=== PATIENT | male | born 1995 ===

== ENCOUNTER 2016-12-08 20:30 | Emergency (ER) | payer SELFPAY ==
[2016-12-08 20:30] VITALS: BMI 25.0
[2016-12-08] MEDS ORDERED: Lidocaine 2% Inj (20ml) INFIL ONE (20:51)
[2016-12-08] MEDS ORDERED: Lidocaine 2% Inj (20ml) ONE (20:54)
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
[2016-12-09 05:49] VITALS: BP 121/84; PULSE 78; RESP 16; TEMP 97.7
--- NOTE | 2016-12-09 08:34 | RAD ---
PROCEDURE: Bilateral hand radiographs. HISTORY: injury COMPARISON: None. FINDINGS: BONES: Right Hand: No complete fracture noted. There is soft tissue swelling over the 5th right no phalangeal joint. No dislocation here seen. On the radial aspect of the proximal phalanx thread-like lucency representing nutrient vessel similar finding on the 4th proximal phalanx the same location is noted this is favored over a incomplete partial fracture here Left Hand: A comminuted nondisplaced distal 2nd metacarpal fracture with extension into the metacarpal phalangeal joint is noted JOINTS: Right Hand: As above Left Hand: As above SOFT TISSUES: Right Hand: Soft tissue swelling about the comminuted left 2nd metacarpal fracture Left Hand: There is soft tissue swelling about the 5th proximal interphalangeal joint OTHER FINDINGS: None. IMPRESSION: Comminuted nondisplaced left 2nd metacarpal with metacarpal phalangeal joint extension. No angulation deformity Fifth proximal phalangeal soft tissue swelling without definitive fracture
--- NOTE | 2016-12-09 09:49 | CT ---
CT maxillofacial History: Injury. Comparison: None available. Technique: Multiple contiguous axial images were performed through the face without the use of intravenous contrast. Subsequently, sagittal and coronal reformatted images were obtained. This CT exam was performed using one or more of the following dose reduction techniques: Automated exposure control, adjustment of the mA and/or kV according to patient size, and/or use of iterative reconstruction technique. Findings: No evidence of acute displaced fracture. Visualized soft tissues appear preserved. Visualized orbits appear preserved. Mild scattered mucosal thickening noted within the paranasal sinuses. Rightward nasal septal deviation. Impression: Negative acute. These findings were preliminarily reported at 12:07 a.m. on 12/09/[address] Kristy Cruz from [facility].
--- NOTE | 2016-12-09 09:55 | CT ---
PROCEDURE: CT HEAD WITHOUT CONTRAST. HISTORY: injury COMPARISON: None available. TECHNIQUE: Axial computed tomography images were obtained through the head/brain without intravenous contrast. Radiation dose: Total exam DLP = 867 mGy-cm. This CT exam was performed using one or more of the following dose reduction techniques: Automated exposure control, adjustment of the mA and/or kV according to patient size, and/or use of iterative reconstruction technique. FINDINGS: HEMORRHAGE: No intracranial hemorrhage. BRAIN: No mass effect or edema. No atrophy or chronic microvascular ischemic changes. VENTRICLES: Unremarkable. No hydrocephalus. CALVARIUM: Unremarkable. PARANASAL SINUSES: Mild scattered mucosal thickening noted within the visualized paranasal sinuses. MASTOID AIR CELLS: Unremarkable as visualized. No inflammatory changes. OTHER FINDINGS: None. IMPRESSION: No acute intracranial abnormality. If focal neurologic deficit persists, consider MRI. These findings were preliminarily reported at 12:10 a.m. on 12/09/[address] Kristy Cruz from [facility].
[2016-12-19 17:25] VITALS: O2SAT 98
== END 2016-12-09 05:49 | disposition home or self-care (01) ==
LOC: C.ER 20:30
DX: S62.391A Other fracture of second metacarpal bone, left hand, initial encounter for closed fracture (principal); S00.81XA Abrasion of other part of head, initial encounter; Y00.XXXA Assault by blunt object, initial encounter; Y92.9 Unspecified place or not applicable

== ENCOUNTER 2017-07-30 16:14 | Inpatient (IN) | payer SELFPAY ==
[2017-07-30 16:14] VITALS: BMI 25.0
--- NOTE | 2017-07-30 16:19 | C.PDOC ---
History Of Present Illness 21M c/o right ankle pain and swelling. he says he was drinking etoh last night. he woke up this am with red, painful, swollen right lower leg. he does not recall any fall or trauma. he says he actually noted the redness last night but woke up today with worsening symptoms. denies any other pmh other than depression. he admits to drinking etoh "once per month." Time Seen by Provider: 07/30/17 16:15 Chief Complaint (Nursing): Lower Extremity Problem/Injury Past Medical History Vital Signs: Last Vital Signs Temp 98.3 F 07/31/17 07:46 Pulse 90 07/31/17 07:46 Resp 20 07/31/17 07:46 BP 125/68 07/31/17 07:46 Pulse Ox 97 07/31/17 07:46 - Medical History PMH: Depression Denies: HIV, HTN, Seizures, Sexually Transmitted Disease - [facility] Procedures OTHER GROUP THERAPY (11/14/13) PSYCHIAT DRUG THERAP NEC (11/14/13) Family History: States: Other Other Family History: nc - Social History Hx Tobacco Use: Yes Hx Alcohol Use: No Hx Substance Use: No (refuses to answer) - Immunization History Hx Tetanus Toxoid Vaccination: Yes (few mos. ago) Hx Influenza Vaccination: No Hx Pneumococcal Vaccination: No Review Of Systems Except As Marked, All Systems Reviewed And Found Negative. Constitutional: Negative for: Fever Cardiovascular: Negative for: Chest Pain Respiratory: Negative for: Shortness of Breath Gastrointestinal: Negative for: Vomiting, Abdominal Pain Musculoskeletal: Negative for: Neck Pain, Back Pain Neurological: Negative for: Weakness, Numbness, Headache Physical Exam - Physical Exam Appears: Well, Non-toxic Skin: Warm, Dry Head: Atraumatic, No Swelling, No Abrasion, No Laceration Eye(s): bilateral: PERRL Nose: No Epistaxis Neck: Normal ROM, No Midline Cervical Tenderness Cardiovascular: Rhythm Regular Respiratory: No Decreased Breath Sounds, No Accessory Muscle Use Gastrointestinal/Abdominal: Soft, No Tenderness Extremity: Swelling (right ankle with mild erythema and warmth. rom somewhat dim due to pain. ) Pulses: Left Dorsalis Pedis: Normal, Right Dorsalis Pedis: Normal Neurological/Psych: Oriented x3, Normal Motor, Normal Sensation, Other (no focal deficits) ED Course And Treatment - Laboratory Results Result Diagrams: 07/31/17 07:45 07/31/17 07:45 Medical Decision Making Medical Decision Makin pt reports sob and appears flushed after toradol injection. lungs clear, throat appears normal. will rx for allergic rxn. 1823 pt resting comfortably, reports improvement in sx however still tachycardic and wbc. disc w Dr Mora will admit. ecg- sinus tach 109, nl axis, no acute ischemia PROCEDURE: Right Ankle Radiographs. HISTORY: fall pain COMPARISON: None FINDINGS: BONES: No definitive evidence of acute displaced fracture nor dislocation. The osseous structures appear intact. Talar dome intact of. JOINTS: Ankle mortise maintained. Tiny posterior and anterior tibial osteophyte formation seen. There is a tiny bony density adjacent to to the anterior superior margin of the talus that may represent some old posttraumatic mineralization. SOFT TISSUES: Mild diffuse soft tissue swelling lateral greater than medial. There is mild infiltration changes seen within the proximal subcutaneous tissues of the calf medial greater than lateral OTHER FINDINGS: None. IMPRESSION: No definitive radiographic evidence of acute displaced fracture nor dislocation. Mild soft tissue swelling over lateral greater than medial. If symptoms persist or occult fracture suspected clinically repeat radiographs 5- 10 days as most fractures should become radiographically evident in this timeframe. Minor DJD as detailed above. Disposition - Disposition Disposition: HOSPITALIZED Disposition Time: 18:33 Condition: STABLE - Clinical Impression Clinical Impression: Cellulitis
--- NOTE | 2017-07-30 16:49 | RAD ---
PROCEDURE: Right Ankle Radiographs. HISTORY: fall pain COMPARISON: None FINDINGS: BONES: No definitive evidence of acute displaced fracture nor dislocation. The osseous structures appear intact. Talar dome intact of. JOINTS: Ankle mortise maintained. Tiny posterior and anterior tibial osteophyte formation seen. There is a tiny bony density adjacent to to the anterior superior margin of the talus that may represent some old posttraumatic mineralization. SOFT TISSUES: Mild diffuse soft tissue swelling lateral greater than medial. There is mild infiltration changes seen within the proximal subcutaneous tissues of the calf medial greater than lateral OTHER FINDINGS: None. IMPRESSION: No definitive radiographic evidence of acute displaced fracture nor dislocation. Mild soft tissue swelling over lateral greater than medial. If symptoms persist or occult fracture suspected clinically repeat radiographs 5-10 days as most fractures should become radiographically evident in this timeframe. Minor DJD as detailed above.
[2017-07-30] MEDS ORDERED: DiphenhydrAMINE 50 mg/ml Inj IVP STA (17:15)
[2017-07-30] MEDS ORDERED: Albuterol 0.083% Inhal Sol (2.5 mg/3 mL) UD INH STA (17:16)
[2017-07-30] MEDS ORDERED: Sodium Chloride 0.9% 1,000 ML IV ONE (17:24)
[2017-07-30] MEDS ORDERED: DiphenhydrAMINE 50 mg/ml Inj ONE (17:27)
[2017-07-30] MEDS ORDERED: Albuterol-Ipratrop 3 mg / 0.5 (3 ml) UD ONE (17:27)
[2017-07-30 17:28] LABS: BASO # 0.1 K/uL (0.0-0.2); BASO % 0.4 % (0.0-2.0); HEMATOCRIT 43.9 % (35.0-51.0); LYMPH # 1.6 K/uL (1.0-4.3); LYMPH % 7.8 % (20.0-40.0); MEAN CORPUSCULAR HEMOGLOBIN 30.1 pg (27.0-31.0); MEAN CORPUSCULAR HGB CONC 33.9 g/dL (33.0-37.0); MONO # 2.7 K/uL (0.0-0.8); PLATELET COUNT 302 K/uL (130-400); WHITE BLOOD COUNT 20.9 K/uL (4.8-10.8)
[2017-07-30 17:33] LABS: MEAN CELL VOLUME 88.8 fL (80.0-94.0)
--- NOTE | 2017-07-30 17:39 | RAD ---
HISTORY: sob COMPARISON: Comparison chest 10/12/2016 FINDINGS: LUNGS: No active pulmonary disease. PLEURA: No significant pleural effusion identified, no pneumothorax apparent. CARDIOVASCULAR: Normal. OSSEOUS STRUCTURES: No significant abnormalities. VISUALIZED UPPER ABDOMEN: Normal. OTHER FINDINGS: None. IMPRESSION: No active disease.
[2017-07-30 17:40] LABS: ALB/GLOB RATIO 1.7 (1.0-2.1); ALKALINE PHOSPHATASE 70 U/L (38-126); ALT/SGPT 73 U/L (21-72); AST/SGOT 32 U/L (17-59); BILIRUBIN,TOTAL 1.5 mg/dL (0.2-1.3); BLOOD UREA NITROGEN 17 mg/dL (9-20); CALCIUM 8.9 mg/dl (8.6-10.4); CARBON DIOXIDE 24 mmol/L (22-30); CHLORIDE 95 mmol/L (98-107); GFR AFRICAN-AMERICAN > 60; GLUCOSE,RANDOM 94 mg/dL (75-110); POTASSIUM 3.8 mmol/L (3.6-5.2); SODIUM 131 mmol/L (132-148); TOTAL PROTEIN 7.7 g/dL (6.3-8.3)
[2017-07-30 17:53] VITALS: RESP 20
[2017-07-30 18:10] LABS: NEUTROPHIL 82 % (50-75); TOTAL CELLS COUNTED 100
[2017-07-30 18:11] LABS: LARGE PLATELETS PRESENT
[2017-07-30] MEDS ORDERED: ceFAZolin 1 gm FROZEN Premix 1 GM/50 ML ML IVPB ONE (18:45)
[2017-07-30] MEDS: Lactated Ringer's 1,000 ML IV SCH (19:53)
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
[2017-07-31] MEDS: Lactated Ringer's 1,000 ML IV SCH ×2 (05:38→16:07)
[2017-07-31 08:19] LABS: BASO % 0.1 % (0.0-2.0); LYMPH # 0.7 K/uL (1.0-4.3); LYMPH % 4.9 % (20.0-40.0); MEAN CELL VOLUME 89.1 fL (80.0-94.0); MEAN CORPUSCULAR HEMOGLOBIN 30.3 pg (27.0-31.0); MEAN CORPUSCULAR HGB CONC 34.1 g/dL (33.0-37.0); MEAN PLATELET VOLUME 7.6 fL (7.2-11.7); MONO % 6.8 % (0.0-10.0); NRBC % 0.2 % (0.0-2.0); PLATELET COUNT 277 K/uL (130-400); RED CELL DISTRIBUTION WIDTH 13.9 % (11.5-14.5); WHITE BLOOD COUNT 14.4 K/uL (4.8-10.8)
[2017-07-31 08:29] LABS: ALB/GLOB RATIO 1.4 (1.0-2.1); ALKALINE PHOSPHATASE 62 U/L (38-126); ALT/SGPT 55 U/L (21-72); AST/SGOT 23 U/L (17-59); BILIRUBIN,TOTAL 0.9 mg/dL (0.2-1.3); BLOOD UREA NITROGEN 15 mg/dL (9-20); CALCIUM 8.6 mg/dl (8.6-10.4); CARBON DIOXIDE 24 mmol/L (22-30); CHLORIDE 100 mmol/L (98-107); GFR AFRICAN-AMERICAN > 60; GLUCOSE,RANDOM 115 mg/dL (75-110); MAGNESIUM 2.1 mg/dL (1.6-2.3); PHOSPHOROUS 3.2 mg/dL (2.5-4.5); POTASSIUM 3.9 mmol/L (3.6-5.2); SODIUM 132 mmol/L (132-148); TOTAL PROTEIN 6.7 g/dL (6.3-8.3)
[2017-07-31 09:42] LABS: NEUTROPHIL 90 % (50-75); TOTAL CELLS COUNTED 100
--- NOTE | 2017-07-31 18:34 | CP.PCM.PN ---
Subjective - Date & Time of Evaluation Date of Evaluation: 07/31/17 Time of Evaluation: 18:30 - Subjective Subjective: Medical Attending Note: Patient seen and examined at bedside. Patient denies headache, denies chest pain, denies shortness of breathe, denies cough, denies abdominal pain except from the hep subq shots, denies nausea, denies vomitting, reports depression, denies SI, denies HI, and reports right leg pain. Patient reports right leg swelling has improved and color has improved. Patient reports he has been feeling depression since his breakup with his girlfriend. In order to cope, he drinks a lot of alcohol. He tried to go back to his girl friends apartment but she wouldn't let him in; he also tried to stay at his mother's but his drinking is adversely affecting his relationship with his mother. He is non-compliant on his anti-depressants, has not taken them more than one week. Objective - Vital Signs/Intake and Output Vital Signs (last 24 hours): Temp Pulse Resp BP Pulse Ox 98.6 F 84 20 114/61 96 07/31/17 16:50 07/31/17 16:50 07/31/17 16:50 07/31/17 16:50 07/31/17 16:50 Intake and Output: 07/31/17 07/31/17 06:59 18:59 Intake Total 1120 1350 Balance 1120 1350 - Medications Medications: Current Medications Enoxaparin Sodium (Lovenox) 40 mg SC DAILY [facility] Famotidine (Pepcid) 20 mg PO DAILY [facility] Last Admin: 07/31/17 10:02 Dose: 20 mg Folic Acid (Folic Acid) 1 mg PO DAILY [facility] [place] Last Admin: 07/31/17 10:02 Dose: 1 mg Cefazolin Sodium 500 mg/ (Sodium Chloride) 50 mls @ 100 mls/hr IVPB Q8H [facility] Last Admin: 07/31/17 18:29 Dose: 100 mls/hr Ketorolac Tromethamine (Toradol) 30 mg IVP Q6H PRN PRN Reason: Pain, severe (8-10) Stop: 08/01/17 18:46 Pneumococcal Polyvalent Vaccine (Pneumovax 23 Vaccine) 0.5 ml IM .ONCE ONE Stop: 08/02/17 10:01 Saccharomyces Boulardii (Florastor) 250 mg PO BID [facility] [place] Thiamine HCl (Vitamin B1 Tab) 50 mg PO DAILY [facility] Last Admin: 07/31/17 10:02 Dose: 50 mg Zinc Acetate/Diphenhydramine (Benadryl 1% Zinc Acetate -0.1%) 1 cre TOP DAILY [facility] - Labs Labs: 07/31/17 07:45 07/31/17 07:45 - Constitutional Appears: Non-toxic, No Acute Distress - Head Exam Head Exam: NORMAL INSPECTION - Eye Exam Eye Exam: EOMI - ENT Exam ENT Exam: Mucous Membranes Moist - Respiratory Exam Respiratory Exam: Clear to Ausculation Bilateral, NORMAL BREATHING PATTERN. absent: Rales, Rhonchi, Wheezes - Cardiovascular Exam Cardiovascular Exam: REGULAR RHYTHM, +S1, +S2 - GI/Abdominal Exam GI & Abdominal Exam: Soft, Normal Bowel Sounds. absent: Distended, Firm, Guarding, Rigid, Tenderness, Rebound - Extremities Exam Extremities Exam: Normal Capillary Refill, Pedal Edema, Tenderness - Back Exam Back Exam: absent: CVA tenderness (L), CVA tenderness (R) - Neurological Exam Neurological Exam: Alert, Awake, Oriented x3 - Psychiatric Exam Psychiatric exam: Depressed. absent: Homicidal Ideation, Suicidal Ideation - Skin Skin Exam: Dry, Erythema (over right lower extremity), Intact, Rash (faint rash over right lower extremity; outlined post treatment), Warm. absent: Petechiae Assessment and Plan (1) Cellulitis Assessment & Plan: * Cefazolin 500mg q8h * Toradol 30mg IV Q 6H PRN (1 day) for severe pain * f/u Venous doppler * Ankle X-ray: No definitive radiographic evidence of acute displaced fracture nor dislocation. Mild soft tissue swelling over lateral greater than medial. If symptoms persist or occult fracture suspected clinically repeat radiographs 5- 10 days as most fractures should become radiographically evident in this timeframe. * Outlined partially treated Status: Acute (2) Moderate major depression, single episode Assessment & Plan: Psych consult (Dr. Lux) on board-->help appreciated Patient denies SI/denies HI Self-medicates with alcohol noncompliant on anti-depressants Status: Acute (3) Depression Status: Chronic (4) Alcohol use Status: Acute (5) Prophylactic measure Assessment & Plan: Changed to Lovenox 40mg subq daily Pepcid 20mg PO daily Status: Acute
[2017-08-01 07:30] LABS: BASO % 0.5 % (0.0-2.0); EOS % 0.4 % (0.0-4.0); HEMATOCRIT 38.3 % (35.0-51.0); LYMPH # 2.3 K/uL (1.0-4.3); MEAN CELL VOLUME 89.9 fL (80.0-94.0); MEAN CORPUSCULAR HEMOGLOBIN 31.3 pg (27.0-31.0); MEAN CORPUSCULAR HGB CONC 34.9 g/dL (33.0-37.0); MEAN PLATELET VOLUME 7.8 fL (7.2-11.7); MONO # 0.9 K/uL (0.0-0.8); MONO % 10.2 % (0.0-10.0); RED CELL DISTRIBUTION WIDTH 14.1 % (11.5-14.5); WHITE BLOOD COUNT 8.6 K/uL (4.8-10.8)
[2017-08-01 08:31] LABS: ALKALINE PHOSPHATASE 52 U/L (38-126); ALT/SGPT 45 U/L (21-72); AST/SGOT 18 U/L (17-59); BILIRUBIN,TOTAL 0.2 mg/dL (0.2-1.3); BLOOD UREA NITROGEN 16 mg/dL (9-20); CALCIUM 8.6 mg/dl (8.6-10.4); CARBON DIOXIDE 26 mmol/L (22-30); CHLORIDE 104 mmol/L (98-107); GFR AFRICAN-AMERICAN > 60; GLUCOSE,RANDOM 92 mg/dL (75-110); MAGNESIUM 2.1 mg/dL (1.6-2.3); PHOSPHOROUS 3.1 mg/dL (2.5-4.5); POTASSIUM 4.1 mmol/L (3.6-5.2); SODIUM 138 mmol/L (132-148); TOTAL PROTEIN 6.7 g/dL (6.3-8.3)
[2017-08-01] MEDS: Diphenhydramine 1% Cream (1 oz) TOP SCH (09:36)
[2017-08-01] MEDS: Saccharomyces Boulardi 250 mg Cap PO SCH ×2 (09:36→18:06)
--- NOTE | 2017-08-01 09:39 | CP.PCM.PN ---
<Gay Allred - Last Filed: 08/01/17 17:17> Subjective - Date & Time of Evaluation Date of Evaluation: 08/01/17 Time of Evaluation: 07:00 - Subjective Subjective: Patient was seen and examined at bedside in the AM. Patient states he is feeling well. He states he know he has to stop drinking. He denies leg pain, nausea, vomiting, fever, diarrhea or constipation. Objective - Vital Signs/Intake and Output Vital Signs (last 24 hours): Temp Pulse Resp BP Pulse Ox 97.9 F 76 20 118/62 95 08/01/17 00:00 08/01/17 00:00 08/01/17 00:00 08/01/17 00:00 08/01/17 00:00 Intake and Output: 08/01/17 08/01/17 06:59 18:59 Intake Total 540 Balance 540 - Medications Medications: Current Medications Enoxaparin Sodium (Lovenox) 40 mg SC DAILY [facility] Last Admin: 08/01/17 09:35 Dose: 40 mg Famotidine (Pepcid) 20 mg PO DAILY [facility] Last Admin: 08/01/17 09:36 Dose: 20 mg Folic Acid (Folic Acid) 1 mg PO DAILY [facility] Last Admin: 08/01/17 09:36 Dose: 1 mg Cefazolin Sodium 500 mg/ (Sodium Chloride) 50 mls @ 100 mls/hr IVPB Q8H [facility] Last Admin: 08/01/17 09:35 Dose: 100 mls/hr Ketorolac Tromethamine (Toradol) 30 mg IVP Q6H PRN PRN Reason: Pain, severe (8-10) Stop: 08/01/17 18:46 Last Admin: 07/31/17 18:50 Dose: 30 mg Pneumococcal Polyvalent Vaccine (Pneumovax 23 Vaccine) 0.5 ml IM .ONCE ONE Stop: 08/02/17 10:01 Saccharomyces Boulardii (Florastor) 250 mg PO BID [facility] Last Admin: 08/01/17 09:36 Dose: 250 mg Thiamine HCl (Vitamin B1 Tab) 50 mg PO DAILY [facility] Last Admin: 08/01/17 09:35 Dose: 50 mg Zinc Acetate/Diphenhydramine (Benadryl 1% Zinc Acetate -0.1%) 1 cre TOP DAILY [facility] Last Admin: 08/01/17 09:36 Dose: 1 applic - Labs Labs: 08/01/17 07:08 08/01/17 07:08 - Constitutional Appears: No Acute Distress - Head Exam Head Exam: ATRAUMATIC, NORMAL INSPECTION - Eye Exam Eye Exam: EOMI, Normal appearance - ENT Exam ENT Exam: Mucous Membranes Moist - Respiratory Exam Respiratory Exam: Clear to Ausculation Bilateral, NORMAL BREATHING PATTERN. absent: Rales, Rhonchi, Wheezes, Stridor - Cardiovascular Exam Cardiovascular Exam: REGULAR RHYTHM, RRR, +S1, +S2 - GI/Abdominal Exam GI & Abdominal Exam: Soft, Normal Bowel Sounds. absent: Tenderness - Extremities Exam Extremities Exam: Joint Swelling (right lower extremity ) Additional comments: right lower extremity cellulitis - Neurological Exam Neurological Exam: Alert, Awake, Oriented x3 - Psychiatric Exam Psychiatric exam: Normal Affect, Normal Mood - Skin Skin Exam: Dry, Erythema (right lower extremity ), Intact, Warm. absent: Abrasion Assessment and Plan - Assessment and Plan (Free Text) Assessment: 1.) Right Lower Extremity pain/swelling secondary to Cellulitis - Head CT: No evidence of acute intracranial hemorrhage intracranial collection mass effect or midline shift. - Right Ankle X-ray: No definitive radiographic evidence of acute displaced fracture nor dislocation. Mild soft tissue swelling over lateral greater than medial. If symptoms persist or occult fracture suspected clinically repeat radiographs 5-10 days as most fractures should become radiographically evident in this timeframe. - Venous doppler: negative - f/u Right Foot x-ray - f/u Right Knee xray - Medications: * Cefazolin 500mg q8h * Toradol 30mg IV q6h PRN for severe pain * Diphenhdramine 1% topical 2.) Alcohol Intoxication - Alcohol Serum 11 - EKG: Sinus Tachycardia - Chest X-ray: No active disease - UDS: + cocaine - Medications: * Thiamine 50mg PO daily * Folic Acid 1mg PO daily * Multivitamin * Ativan 2mg IV q4h PRN for seizures - Discussed alcohol and cocaine cessation 3.) History of Depression Psych consult: Dr. Lux -->help appreciated - Trazodone 50mg PO HS - Setraline 50mg PO daily - Gabapentin 100mg PO TID 4.) Prophylaxis - Pepcid 20mg PO daily - Heparin SC - SCDs contraindications due to right lower extremity cellulitis Case discussed with Dr. Felix Allred PGY-1 <Sai Washington - Last Filed: 08/01/17 19:56> Objective - Vital Signs/Intake and Output Vital Signs (last 24 hours): Temp Pulse Resp BP Pulse Ox 98.1 F 75 20 116/63 96 08/01/17 15:15 08/01/17 15:15 08/01/17 15:15 08/01/17 15:15 08/01/17 15:15 - Medications Medications: Current Medications Enoxaparin Sodium (Lovenox) 40 mg SC DAILY [facility] Last Admin: 08/01/17 09:35 Dose: 40 mg Famotidine (Pepcid) 20 mg PO DAILY [facility] Last Admin: 08/01/17 09:36 Dose: 20 mg Folic Acid (Folic Acid) 1 mg PO DAILY [facility] Last Admin: 08/01/17 09:36 Dose: 1 mg Gabapentin (Neurontin) 100 mg PO TID [facility] Last Admin: 08/01/17 18:06 Dose: 100 mg Cefazolin Sodium 500 mg/ (Sodium Chloride) 50 mls @ 100 mls/hr IVPB Q8H [facility] Last Admin: 08/01/17 18:05 Dose: 100 mls/hr Lorazepam (Ativan) 2 mg IVP Q4H PRN PRN Reason: Seizure activity Multivitamins (Hexavitamin) 1 tab PO DAILY [facility] Last Admin: 08/01/17 16:00 Dose: 1 tab Pneumococcal Polyvalent Vaccine (Pneumovax 23 Vaccine) 0.5 ml IM .ONCE ONE Stop: 08/02/17 10:01 Saccharomyces Boulardii (Florastor) 250 mg PO BID [facility] Last Admin: 08/01/17 18:06 Dose: 250 mg Sertraline HCl (Zoloft) 50 mg PO DAILY [facility] Last Admin: 08/01/17 11:52 Dose: 50 mg Thiamine HCl (Vitamin B1 Tab) 50 mg PO DAILY [facility] Last Admin: 08/01/17 09:35 Dose: 50 mg Trazodone HCl (Desyrel) 50 mg PO HS [facility] Zinc Acetate/Diphenhydramine (Benadryl 1% Zinc Acetate -0.1%) 1 cre TOP DAILY [facility] Last Admin: 08/01/17 09:36 Dose: 1 applic - Labs Labs: 08/01/17 07:08 08/01/17 07:08 Attending/Attestation - Attestation I have personally seen and examined this patient.: Yes I have fully participated in the care of the patient.: Yes I have reviewed all pertinent clinical information, including history, physical exam and plan: Yes Notes (Text): 08/01/17 19:52 Patient was seen and examined at 6:15 PM 08/01/17 351 B Exam, Assessment and Plan were thoroughly gone over with the resident: Also upon Exam: Right Lower Leg: edema, NO erythema noted at the time of my exam within area demarcated with blue marker and beyond demarcation, NO warmth noted, slightly tender to touch If patient continues to improve and is fever free for at least 48 hours then we will discharge on Cephalexin 500 mg PO Q6H to complete a total of 14 days of antibiotics. Sai Washington D.O.
[2017-08-01] MEDS ORDERED: Enoxaparin 40 mg Syringe SC SCH (10:00)
--- NOTE | 2017-08-01 15:28 | PCM.PSYCH ---
Initial Psychiatric Evaluation - Initial Psychiatric Evaluation Type of Admission: Voluntary Legal Status: Capacity Chief Complaint (in patient's own words): "I feel depressed" History of Present Illness and Precipitating Events: He is seen, chart reviewed and case discussed. Consult was requested for his mood sxs and cocaine use. Pt is 21 y/o male that was admitted 07/30/17 after a fall for right leg pain and swelling secondary to cellulitis. Pt is single with no children and lives with mother. Pt is currently unemployed. Pt states that he is feeling depressed for an unspecified amount of time. Pt states that he used to take an unspecified dose Zoloft with his last dose being 5 days ago. Pt denies suicidal ideations, paranoia, and auditory hallucinations. Pt sates that he binge drinks an unspecified amount of alcohol occasionally for the past 7 years. Pt states that he experiences alcohol withdrawal symptoms when he is not using alcohol. Pt states that he also uses an unspecified amount of cocaine for a while. Pt states that he smokes cigarettes usually when he consumes alcohol. Pt denies marijuana and opioid use. Past Medical: denies Past Psych Hx: Denies Family Psych HX: Denies Current Medications: Active Medications Generic Name Dose Route Start Last Admin Trade Name Freq PRN Reason Stop Dose Admin Enoxaparin Sodium 40 mg 08/01/17 10:00 08/01/17 09:35 Lovenox SC 40 mg DAILY [facility] Administration Famotidine 20 mg 07/31/17 10:00 08/01/17 09:36 Pepcid PO 20 mg DAILY [facility] Administration Folic Acid 1 mg 07/31/17 10:00 08/01/17 09:36 Folic Acid PO 1 mg DAILY [facility] Administration Gabapentin 100 mg 08/01/17 14:00 Neurontin PO TID [facility] Cefazolin Sodium 500 mg/ 50 mls @ 100 mls/hr 07/31/17 02:00 08/01/17 09:35 Sodium Chloride IVPB 100 mls/hr Q8H [facility] Administration Ketorolac Tromethamine 30 mg 07/31/17 18:33 07/31/17 18:50 Toradol IVP 08/01/17 18:46 30 mg Q6H PRN Administration Pain, severe (8-10) Pneumococcal Polyvalent Vaccine 0.5 ml 08/02/17 10:00 Pneumovax 23 Vaccine IM 08/02/17 10:01 .ONCE ONE Saccharomyces Boulardii 250 mg 08/01/17 10:00 08/01/17 09:36 Florastor PO 250 mg BID [facility] Administration Sertraline HCl 50 mg 08/01/17 11:45 08/01/17 11:52 Zoloft PO 50 mg DAILY [facility] Administration Thiamine HCl 50 mg 07/31/17 10:00 08/01/17 09:35 Vitamin B1 Tab PO 50 mg DAILY [facility] Administration Trazodone HCl 50 mg 08/01/17 22:00 Desyrel PO HS [facility] Zinc Acetate/Diphenhydramine 1 cre 08/01/17 10:00 08/01/17 09:36 Benadryl 1% Zinc Acetate -0.1% TOP 1 applic DAILY [facility] Administration Past Psychiatric History - Past Psychiatric History Previous Treatment History: Intensive Outpatient Pertinent Medical Hx (Current Medical&Sleep Prob, Allergies): Allergies Allergy/AdvReac Type Severity Reaction Status Date / Time No Known Allergies Allergy Verified 07/30/17 17:03 No Known Home Med 12/08/16 Review of Systems - Neurological Neurological: UNREMARKABLE - Psychiatric Psychiatric: Abnormal Sleep Pattern, Anhedonia, Depression, Difficulty Concentrating. absent: Hallucinations, Homicidal Ideation, Paranoia, Suicidal Ideation Mental Status Examination - Personal Presentation Personal Presentation: Looks stated age - Affect Affect: Constricted - Motor Activity Motor Activity: Calm - Speech Speech: Organized - Mood Mood: Depressed - Formal Thought Process Formal Thought Process: No Impairment - Cognitive Functions Orientation: Person, Place, Situation, Time Sensorium: Alert Attention/Concentration: Attentive Estimate of Intelligence: Average Judgement: Intact, as evidence by: Insight regarding need for hospitalization Memory: Recent intact, as evidence by: Ability to recall events of the day, Remote intact, as evidenced by: Ability to recall historical events - Risk Risk: Seizure, Withdrawal, Diminished functioning - Strength & Assets Inventory Strength & Assets Inventory: Cooperative - Limitations Limitations: Other DSM 5 DX - DSM 5 DSM 5 Diagnosis: MDD - Single, Moderate Cocaine use d/o - moderate Tobacco use d/o- moderate Alcohol Use d/o - severe - Recommended/Plan of Treatment Treatment Recommendations and Plan of Treatment: Start Trazodone 50mg PO HS Sertraline 50mg PO daily Gabapentin 100mg PO TID Individual therapy daily Psychoeducation and support daily Encourage compliance with meds and after care Refer to outpatient program Teach healthy lifestyle methods, i.e. diet, exercise, meditation Smoking cessation and patch 32 min Projected ELOS: 4-5 days Prognosis: Good with treament Discharge Plan and Discharge Criteria: No wdw sxs Refer to rehab
[2017-08-01] MEDS: Multiple Vitamins Tab PO SCH (16:00)
--- NOTE | 2017-08-01 16:41 | CT ---
PROCEDURE: CT HEAD WITHOUT CONTRAST. HISTORY: fall COMPARISON: Comparison is made to the previous study dated 12/08/2016 TECHNIQUE: Axial computed tomography images were obtained through the head/brain without intravenous contrast. Radiation dose: Total exam DLP = 937.83 mGy-cm. This CT exam was performed using one or more of the following dose reduction techniques: Automated exposure control, adjustment of the mA and/or kV according to patient size, and/or use of iterative reconstruction technique. FINDINGS: HEMORRHAGE: No intracranial hemorrhage. BRAIN: No mass effect or edema. No atrophy or chronic microvascular ischemic changes. VENTRICLES: Unremarkable. No hydrocephalus. CALVARIUM: Unremarkable. PARANASAL SINUSES: Unremarkable as visualized. No significant inflammatory changes. MASTOID AIR CELLS: Unremarkable as visualized. No inflammatory changes. OTHER FINDINGS: None. IMPRESSION: No evidence of acute intracranial hemorrhage intracranial collection mass effect or midline shift.
[2017-08-02 01:44] VITALS: O2SAT 97
[2017-08-02 07:06] LABS: BASO % 0.6 % (0.0-2.0); EOS # 0.1 K/uL (0.0-0.7); EOS % 0.6 % (0.0-4.0); HEMATOCRIT 41.9 % (35.0-51.0); LYMPH # 2.2 K/uL (1.0-4.3); LYMPH % 28.2 % (20.0-40.0); MEAN CELL VOLUME 90.8 fL (80.0-94.0); MEAN CORPUSCULAR HEMOGLOBIN 30.6 pg (27.0-31.0); MEAN CORPUSCULAR HGB CONC 33.7 g/dL (33.0-37.0); MEAN PLATELET VOLUME 7.4 fL (7.2-11.7); MONO # 0.6 K/uL (0.0-0.8); MONO % 7.3 % (0.0-10.0); NRBC % 0.4 % (0.0-2.0); RED CELL DISTRIBUTION WIDTH 13.5 % (11.5-14.5)
[2017-08-02 07:28] LABS: ALB/GLOB RATIO 1.5 (1.0-2.1); ALKALINE PHOSPHATASE 60 U/L (38-126); ALT/SGPT 52 U/L (21-72); AST/SGOT 21 U/L (17-59); BILIRUBIN,TOTAL 0.5 mg/dL (0.2-1.3); BLOOD UREA NITROGEN 16 mg/dL (9-20); CALCIUM 8.5 mg/dl (8.6-10.4); CARBON DIOXIDE 24 mmol/L (22-30); CHLORIDE 103 mmol/L (98-107); GFR AFRICAN-AMERICAN > 60; GLUCOSE,RANDOM 91 mg/dL (75-110); MAGNESIUM 2.1 mg/dL (1.6-2.3); PHOSPHOROUS 4.1 mg/dL (2.5-4.5); SODIUM 136 mmol/L (132-148); TOTAL PROTEIN 6.5 g/dL (6.3-8.3)
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
[2017-08-02 08:43] VITALS: BP 113/75; PULSE 74; TEMP 98
--- NOTE | 2017-08-02 09:06 | RAD ---
PROCEDURE: Right Knee Radiographs. HISTORY: s/p fall COMPARISON: None. FINDINGS: BONES: Normal. No fracture. JOINTS: Normal. No osteoarthritis. JOINT EFFUSION: None. OTHER FINDINGS: None. IMPRESSION: No demonstrated fracture or dislocation.
--- NOTE | 2017-08-02 09:07 | RAD ---
PROCEDURE: Right Ankle Radiographs. HISTORY: s/p fall COMPARISON: None FINDINGS: BONES: Normal. No fracture. JOINTS: Normal. No osteoarthritis. Ankle mortise maintained. Talar dome intact SOFT TISSUES: Medial malleolar soft tissue swelling. OTHER FINDINGS: None. IMPRESSION: Mild medial malleolar soft tissue swelling without demonstrated fracture or dislocation.
[2017-08-02] MEDS: Saccharomyces Boulardi 250 mg Cap PO SCH (09:38)
[2017-08-02] MEDS: Multiple Vitamins Tab PO SCH (09:38)
[2017-08-02] MEDS: Diphenhydramine 1% Cream (1 oz) TOP SCH (09:43)
[2017-08-02] MEDS ORDERED: Pneumococcal 23-Valent Vaccine IM ONE (10:00)
[2017-08-02] MEDS ORDERED: Influenza Vaccine 60 mcg/0.5 mL SYR (4YR UP) IM ONE ×2 (10:00→11:41)
--- NOTE | 2017-08-02 11:36 | VASCLAB ---
PROCEDURE: Right Lower Extremity Venous Duplex Exam. HISTORY: swelling PRIORS: None. TECHNIQUE: Right common femoral, femoral, popliteal and posterior tibial, peroneal and great saphenous veins were evaluated. Flow was assessed with color Doppler, compressibility, assessment of phasic flow and augmentation response. Report prepared by SANTA Salmon, RVT FINDINGS: RIGHT: 1. Common Femoral Vein: 1.1. Compressibility - Fully compressible: Thrombus - None: Flow - Phasic: Augmentation -Normal: Reflux - None. 2. Femoral Vein: 2.1. Compressibility - Fully compressible: Thrombus - None: Flow - Phasic: Augmentation -Normal: Reflux - None. 3. Popliteal Vein: 3.1. Compressibility - Fully compressible: Thrombus - None: Flow - Phasic: Augmentation -Normal: Reflux - None. 4. Posterior Tibial Vein: 4.1. Compressibility - Fully compressible: Thrombus - None: Flow - Phasic: Augmentation -Normal: Reflux - None. 5. Peroneal Vein: 5.1. Compressibility - Fully compressible: Thrombus - None: Flow - Phasic: Augmentation -Normal: Reflux - None. 6. Great Saphenous Vein: 6.1. Compressibility - Fully compressible: Thrombus -None: Flow - Phasic: Augmentation - Normal: Reflux - None. OTHER FINDINGS: IMPRESSION: No evidence of deep or superficial vein thrombosis of the right lower extremity with excellent venous flow. Normal valve function noted of the right side. Normal venous flow noted in the left common femoral vein.
== END 2017-08-02 13:45 | disposition home or self-care (01) | DRG 603 ==
LOC: C.ER 16:14 → C.9E 18:30 → C.3T 20:27
PROVIDERS: ADMIT Family Medicine; ATTEND Family Medicine
PROC: HZ56ZZZ Individual Psychotherapy for Substance Abuse Treatment, Psychoeducation (ICD-10-PCS; principal; 2017-08-01)
PROC: HZ59ZZZ Individual Psychotherapy for Substance Abuse Treatment, Supportive (ICD-10-PCS; 2017-08-01)
DX: L03.115 Cellulitis of right lower limb (principal); F32.1 Major depressive disorder, single episode, moderate; R41.82 Altered mental status, unspecified; Y90.0 Blood alcohol level of less than 20 mg/100 ml; F17.210 Nicotine dependence, cigarettes, uncomplicated; F10.220 Alcohol dependence with intoxication, uncomplicated; F14.90 Cocaine use, unspecified, uncomplicated; Z91.19 Patient's noncompliance with other medical treatment and regimen

== ENCOUNTER 2018-04-24 06:26 | Emergency (ER) | payer SELFPAY ==
[2018-04-24 06:26] VITALS: BMI 25.0
[2018-04-24] MEDS ORDERED: Sodium Chloride 0.9% 1,000 ML IV ONE (06:57)
[2018-04-24 07:16] LABS: BASO # 0.1 K/uL (0.0-0.2); BASO % 0.9 % (0.0-2.0); EOS # 0.1 K/uL (0.0-0.7); EOS % 1.5 % (0.0-4.0); HEMOGLOBIN 14.5 g/dL (12.0-18.0); LYMPH # 2.4 K/uL (1.0-4.3); LYMPH % 26.3 % (20.0-40.0); MEAN CELL VOLUME 89.2 fL (80.0-94.0); MEAN CORPUSCULAR HEMOGLOBIN 31.1 pg (27.0-31.0); MEAN CORPUSCULAR HGB CONC 34.8 g/dL (33.0-37.0); MEAN PLATELET VOLUME 7.4 fL (7.2-11.7); NEUT # 5.4 K/uL (1.8-7.0); NEUT % 60.3 % (50.0-75.0); RBC 4.66 Mil/uL (4.40-5.90); RED CELL DISTRIBUTION WIDTH 14.6 % (11.5-14.5)
[2018-04-24] MEDS ORDERED: Sodium Chloride 0.9% 1,000 ML ONE (07:34)
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
[2018-04-24 07:56] LABS: CALCIUM 8.7 mg/dl (8.6-10.4); GFR NON-AFRICAN AMERICAN > 60; LIPASE 98 U/L (23-300)
[2018-04-24 07:57] LABS: ALB/GLOB RATIO 1.3 (1.0-2.1); ALBUMIN 4.4 g/dL (3.5-5.0); ALT/SGPT 41 U/L (21-72); AST/SGOT 56 U/L (17-59); BLOOD UREA NITROGEN 14 mg/dL (9-20)
[2018-04-24 09:09] VITALS: BP 115/76; PULSE 67; RESP 18; TEMP 97.8
--- NOTE | 2018-04-24 10:47 | RAD ---
Date of service: 04/24/2018 PROCEDURE: Radiographs of the chest and abdomen (obstructive series) HISTORY: abd pain COMPARISON: Chest x-ray performed 07/30/17 TECHNIQUE: AP radiograph of the chest, with upright and supine radiographs of the abdomen. FINDINGS: CHEST: Heart size appears within normal limits. No focal consolidation, significant pleural effusion, or definite pneumothorax identified.Please note that chest x-ray has limited sensitivity for the detection of pulmonary masses. ABDOMEN AND PELVIS: Nonobstructive bowel gas pattern. Mild constipation. No definite free air. No acute osseous abnormality is detected. IMPRESSION: No focal consolidation. No evidence of mechanical bowel obstruction. Mild constipation.
[2018-04-24 12:53] VITALS: O2SAT 97
== END 2018-04-24 09:09 | disposition home or self-care (01) ==
LOC: C.ER 06:26
DX: R10.13 Epigastric pain (principal)
CPT/HCPCS: 74022; 80053; 83690; 85025; 96361; 96374; 96375; 99285; J1885; J2405; J7030